=== PATIENT | female | born 1950 | race Two or more races ===

== ENCOUNTER 2025-07-23 07:00 | Day surgery (SDC) | payer OTHER ==
[2025-07-16 11:52] VITALS: BP 140/88
[~2025-07-23] VITALS: Ht 152.4 cm; Wt 56.7 kg
[~2025-07-23 07:00] MED LIST: COZAAR100 MG PO; FENOFIBRATE50 MG; FOSAMAX70 MG PO; LIPITOR40 M1 PO; METFORMIN HCL500 MG; SYNTHROID88 MCG PO
[2025-07-23] MEDS ORDERED: CHLORHEXIDINE GLUCONATE 120 ML BOTTLE TOP ONE (08:21)
[2025-07-23] MEDS ORDERED: KETOROLAC TROMETHAMINE 30 MG VIAL IV ONE (14:00)
[2025-07-23] MEDS ORDERED: KETOROLAC TROMETHAMINE 30 MG VIAL ONE (14:00)
[2025-07-23] MEDS ORDERED: ONDANSETRON HCL 2 MG/ML VIAL IV ONE (14:00)
== END 2025-07-23 14:35 | disposition home or self-care (01) ==
LOC: CIR.AMB 07:00
PROVIDERS: ATTEND Obstetrics & Gynecology
DX: R87.613 High grade squamous intraepithelial lesion on cytologic smear of cervix (HGSIL) (principal); N72 Inflammatory disease of cervix uteri; Z91.041 Radiographic dye allergy status